=== PATIENT | male | born 2000 | race Two or more races ===

== ENCOUNTER 2022-03-26 08:09 | Emergency (ER) | payer OTHER ==
[2022-03-26 08:18] VITALS: BP 133/82; PULSE 61; RESP 20; TEMP 97.8; BMI 34.9
[2022-03-26] MEDS ORDERED: KETOROLAC TROMETHAMINE 30 MG/1 ML VIAL IM ONE (09:30)
[2022-03-26] MEDS ORDERED: KETOROLAC TROMETHAMINE 30 MG/1 ML VIAL ONE (09:38)
== END 2022-03-26 10:10 | disposition home or self-care (01) ==
LOC: JERFT 08:09
PROC: 3E0233Z Introduction of Anti-inflammatory into Muscle, Percutaneous Approach (ICD-10-PCS; principal; 2022-03-26)
DX: S16.1XXA Strain of muscle, fascia and tendon at neck level, initial encounter (principal)
CPT/HCPCS: 99283-25